=== PATIENT | male | born 1940 | race Caucasian/White ===

== ENCOUNTER → 2017-11-25 | Outpatient (CLI) | payer MEDICARE, OTHER ==
[~2017-11-25] MED LIST: CELE20TA PO; COUM2TAB PO; CYCL-36 PO; DICL-86 PO; LANO0.2510 PO; LEVA500T33 PO; LISI-590 PO; MOME17I; PERC7.5T13 PO; PRADAXA PO; ROPI1TAB72 PO; SIMV40TA PO; SPIRCAP INH; SYMB160A INH; TOPR50TA PO; ZYRT10TA12 PO
--- NOTE | 2017-11-29 13:59 | RSPPFT ---
DATE OF PROCEDURE: 11/25/17 COMMENTS: VOLUMES DYNAMIC: FVC and FEV1 moderately reduced. STATIC: TLC mildly reduced; FRC and RV normal. FLOWS: FEV1% moderately reduced; FEF 25-75 severely reduced. DIFFUSION: Moderately reduced. FLOW VOLUME LOOP: Pattern of variable intrathoracic airways obstruction. IMPRESSION: Moderately severe obstructive ventilator defect with reduction in diffusion consistent with emphysema. There is a mild restrictive defect as well with no hyperinflation. Airways resistance is increased but there is no significant improvement post-bronchodilator.
== END ==
LOC: HRSP 11:04
PROVIDERS: ATTEND Internal Medicine
DX: J44.9 Chronic obstructive pulmonary disease, unspecified (principal)
CPT/HCPCS: 94060; 94618; 94726; 94729; 95012

== ENCOUNTER 2017-12-07 14:26 | Observation (INO) | payer MEDICARE, OTHER ==
[2017-12-07 15:00] VITALS: BP 192/100; PULSE 125; RESP 28; TEMP 99.2; O2SAT 95
--- NOTE | 2017-12-07 15:32 | RADRPT ---
EXAM DATE/TIME: 12/07/2017 15:17 [place] COMPARISON: No previous studies available for comparison. INDICATIONS : Short of breath, chest pains. MEDICAL HISTORY : None. SURGICAL HISTORY : None. ENCOUNTER: Initial ACUITY: 1 day PAIN SCORE: 3/10 LOCATION: Bilateral chest FINDINGS: PA and lateral views of the chest demonstrate the lungs to be symmetrically aerated without evidence of mass, infiltrate or effusion. Mild elevation right hemidiaphragm. The heart is mildly enlarged.. Osseous structures are intact. CONCLUSION: 1. No acute pulmonary infiltrates. 2. Mild compensated cardiomegaly. Efra Angel MD on December 07, 2017 at 15:29 Board Certified Radiologist. This report was verified electronically.
[2017-12-07 16:31] LABS: AUTOMATED NEUTROPHIL # 9.4 TH/MM3 (1.8-7.7); BASOPHIL % 0.2 % (0.0-2.0); HEMATOCRIT 39.5 % (39.0-51.0); HEMOGLOBIN 13.9 GM/DL (13.0-17.0); LYMPH % 6.3 % (9.0-44.0); LYMPHOCYTE # 0.7 TH/MM3 (1.0-4.8); MEAN CELL VOLUME 91.6 FL (80.0-100.0); MEAN CORPUSCULAR HEMOGLOBIN 32.1 PG (27.0-34.0); MEAN CORPUSCULAR HGB CONC 35.1 % (32.0-36.0); MEAN PLATELET VOLUME 8.3 FL (7.0-11.0); MONOCYTE # 0.8 TH/MM3 (0-0.9); NEUT % 86.5 % (16.0-70.0); PLATELET COUNT 348 TH/MM3 (150-450); RED BLOOD COUNT 4.32 MIL/MM3 (4.50-5.90); RED CELL DISTRIBUTION WIDTH 15.1 % (11.6-17.2); WHITE BLOOD COUNT 10.8 TH/MM3 (4.0-11.0)
[2017-12-07 16:33] LABS: BILIRUBIN, URINE NEG (NEG); BLOOD, URINE TRACE (NEG); GLUCOSE,URINE NEG (NEG); KETONE, URINE NEG (NEG); NITRITE,URINE NEG (NEG); SQUAMOUS EPITHELIAL CELL URINE 1 /hpf (0-5); URINE COLOR YELLOW (YELLW/STRAW); URINE LEUKOCYTE ESTERASE NEG (NEG)
[2017-12-07 16:40] LABS: INTERNATIONAL NORMALIZED RATIO 1.1 RATIO; PROTHROMBIN TIME - PATIENT 11.2 SEC (9.8-11.6)
[2017-12-07 16:50] LABS: ALBUMIN 3.9 GM/DL (3.4-5.0); AST (GOT) 32 U/L (15-37); BICARBONATE 24.9 MEQ/L (21.0-32.0); BLOOD UREA NITROGEN 22 MG/DL (7-18); CALCIUM 9.6 MG/DL (8.5-10.1); CHLORIDE 107 MEQ/L (98-107); CREATININE 1.02 MG/DL (0.60-1.30); GLOMERULAR FILTRATION RATE 71 ML/MIN (>89); GLUCOSE,RANDOM 111 MG/DL (74-106); SODIUM (NA) 141 MEQ/L (136-145)
[2017-12-07 16:55] LABS: ALKALINE PHOSPHATASE 56 U/L (45-117); ALT (GPT) 48 U/L (12-78); TOTAL BILIRUBIN ADULT 0.7 MG/DL (0.2-1.0); TOTAL PROTEIN 7.9 GM/DL (6.4-8.2); TROPONIN I LESS THAN 0.02 NG/ML (0.02-0.05)
--- NOTE | 2017-12-07 17:11 | PD ---
HPI Chief Complaint: Respiratory Symptoms Time Seen by Provider: 17:00 Travel History International Travel<30 days: No Contact w/Intl Traveler<30days: No Traveled to known affect area: No History of Present Illness HPI 77-year-old male with PMH of anxiety, A. fib, hypertension, hyperlipidemia, COPD , on Xarelto presents to the ED for evaluation of approximate 14 hour history of shortness of breath, central chest tightness. The patient states that the symptoms awoke him from sleep last night. He states that he took a albuterol nebulizer with only minimal improvement of his symptoms. Patient states that he 's had a cough for many weeks. He saw his primary care and took a course of Levaquin with no improvement of his symptoms. He states that he underwent PFTs and had a CT on an outpatient basis as well. He states that after last night episode he started on Levaquin and 40 mg of prednisone again with no improvement of symptoms. He is followed by Dr. Stanley, pulmonology. PFSH Past Medical History Hx Anticoagulant Therapy: Yes (XARELTO) Arthritis: Yes Blood Disorders: No Anxiety: Yes Heart Rhythm Problems: Yes (ATRIAL FIB) Cancer: No Cardiovascular Problems: Yes (AFIB) High Cholesterol: Yes Congestive Heart Failure: No COPD: Yes Diabetes: No Endocrine: No Glaucoma: No Genitourinary: No Hepatitis: No Hiatal Hernia: No Hypertension: Yes Immune Disorder: No Musculoskeletal: Yes Neurologic: No Psychiatric: Yes (CLAUSTRAPHOBIA) Reproductive: No Respiratory: Yes (COPD) Sleep Apnea: Yes (NO C PAP) Thyroid Disease: No Past Surgical History Abdominal Surgery: No Body Medical Devices: LUMBAR HARDWARE Cardiac Surgery: No Ear Surgery: No (TONSILECTOMY) Endocrine Surgery: No Eye Surgery: No Genitourinary Surgery: No Gynecologic Surgery: No Joint Replacement: Yes (RIGHT KNEE TOTAL) Oral Surgery: Yes Pacemaker: No Thoracic Surgery: No Social History Alcohol Use: No Tobacco Use: No Substance Use: No Allergies-Medications (Allergen,Severity, Reaction): Coded Allergies: No Known Allergies (Verified , 07/29/11) Reported Meds & Prescriptions Reported Meds & Active Scripts Active Reported Spiriva Handihaler (Tiotropium Inh) 18 Mcg Cap 18 Mcg INH DAILY 1 capsule = 18 mcg Brovana Neb (Arformoterol Neb) 15 Mcg/2 Ml Vial 1 Nebule NEB BID Maintenance treatment of bronchoconstriction in COPD. Metronidazole Topical 1 % Gel 1 Applic TOPICAL DAILY Hydrocodone-Acetaminophen 5-325 mg Tab 1 Tab PO Q6H PRN Ipratropium Nasal 0.06% [place] 1 [place] EACH NARE TID Ventolin Hfa 18 GM Inh (Albuterol Sulfate) 90 Mcg/Act Aer 1 Puff INH Q4H PRN ZyrTEC Itchy Eye Opth Drops (Ketotifen Opth Drops) 0.025% Drops 1 Drop EACH EYE BID PRN Nasacort Allergy 24Hr Nasal [place] (Triamcinolone Acetonide Nasal [place]) 55 Mcg Spr 55 Mcg EACH NARE DAILY Xarelto (Rivaroxaban) 20 Mg Tab 20 Mg PO DAILY Bystolic (Nebivolol) 2.5 Mg Tab 2.5 Mg PO DAILY Diclofenac Sodium DR (Diclofenac Sodium) 75 Mg Tabdr 75 Mg PO BID Ropinirole 1 Mg Tab 1 Mg HS Crestor (Rosuvastatin Calcium) 10 Mg Tab 10 Mg PO DAILY Lisinopril 5 Mg Tab 5 Mg PO DAILY Citalopram (Citalopram Hydrobromide) 10 Mg Tab 10 Mg PO DAILY Digoxin 0.25 Mg Tab 0.25 Mg PO DAILY Review of Systems Except as stated in HPI: all other systems reviewed are Neg Physical Exam Narrative GENERAL: Well-nourished, well-developed obese white male with some extra work of breathing. On 2 L nasal cannula. SKIN: Focused skin assessment warm/dry. HEAD: Normocephalic. EYES: No scleral icterus. No injection or drainage. NECK: Supple, trachea midline. No JVD or lymphadenopathy. CARDIOVASCULAR: Irregularly irregular rate and rhythm without murmurs, gallops, or rubs. RESPIRATORY: Breath sounds wheezing and tight bilaterally. No accessory muscle use. GASTROINTESTINAL: Abdomen soft, non-tender, nondistended. MUSCULOSKELETAL: No cyanosis, or edema. BACK: Nontender without obvious deformity. No CVA tenderness. Data Data Last Documented VS Vital Signs Date Time Temp Pulse Resp B/P (MAP) Pulse Ox O2 Delivery O2 Flow Rate FiO2 12/07/17 19:23 112 20 176/84 (114) 95 Nasal Cannula 2.00 12/07/17 15:00 99.2 Orders Orders Complete Blood Count With Diff (12/07/17 15:03) Comprehensive Metabolic Panel (12/07/17 15:03) B-Type Natriuretic Peptide (12/07/17 15:03) Act Partial Throm Time (Ptt) (12/07/17 15:03) Prothrombin Time / Inr (Pt) (12/07/17 15:03) Ckmb (Isoenzyme) Profile (12/07/17 15:03) Troponin I (12/07/17 15:03) Urinalysis - C+S If Indicated (12/07/17 15:03) Influenzae A/B Antigen (12/07/17 15:03) Electrocardiogram (12/07/17 15:03) Chest, Pa & Lat (12/07/17 15:03) CKMB (12/07/17 15:50) CKMB% (12/07/17 15:50) Methylprednisolone So Succ Inj (Solumedr (12/07/17 17:15) Albuterol-Ipratropium Neb (Duoneb Neb) (12/07/17 17:15) Diltiazem Inj (Cardizem Inj) (12/07/17 17:30) Consult Pulmonology (12/07/17 ) Admit Order (Ed Use Only) (12/07/17 19:23) Labs Laboratory Tests Test 12/07/17 15:50 12/07/17 16:00 White Blood Count 10.8 TH/MM3 Red Blood Count 4.32 MIL/MM3 Hemoglobin 13.9 GM/DL Hematocrit 39.5 % Mean Corpuscular Volume 91.6 FL Mean Corpuscular Hemoglobin 32.1 PG Mean Corpuscular Hemoglobin Concent 35.1 % Red Cell Distribution Width 15.1 % Platelet Count 348 TH/MM3 Mean Platelet Volume 8.3 FL Neutrophils (%) (Auto) 86.5 % Lymphocytes (%) (Auto) 6.3 % Monocytes (%) (Auto) 7.0 % Eosinophils (%) (Auto) 0.0 % Basophils (%) (Auto) 0.2 % Neutrophils # (Auto) 9.4 TH/MM3 Lymphocytes # (Auto) 0.7 TH/MM3 Monocytes # (Auto) 0.8 TH/MM3 Eosinophils # (Auto) 0.0 TH/MM3 Basophils # (Auto) 0.0 TH/MM3 CBC Comment DIFF FINAL Differential Comment Prothrombin Time 11.2 SEC Prothromb Time International Ratio 1.1 RATIO Activated Partial Thromboplast Time 25.2 SEC Blood Urea Nitrogen 22 MG/DL Creatinine 1.02 MG/DL Random Glucose 111 MG/DL Total Protein 7.9 GM/DL Albumin 3.9 GM/DL Calcium Level 9.6 MG/DL Alkaline Phosphatase 56 U/L Aspartate Amino Transf (AST/SGOT) 32 U/L Alanine Aminotransferase (ALT/SGPT) 48 U/L Total Bilirubin 0.7 MG/DL Sodium Level 141 MEQ/L Potassium Level 4.1 MEQ/L Chloride Level 107 MEQ/L Carbon Dioxide Level 24.9 MEQ/L Anion Gap 9 MEQ/L Estimat Glomerular Filtration Rate 71 ML/MIN Total Creatine Kinase 360 U/L Creatine Kinase MB 13.0 NG/ML Creatine Kinase MB % 3.6 % Troponin I LESS THAN 0.02 NG/ML B-Type Natriuretic Peptide 45 PG/ML Urine Color YELLOW Urine Turbidity CLEAR Urine pH 5.0 Urine Specific [place] 1.016 Urine Protein NEG mg/dL Urine Glucose (UA) NEG mg/dL Urine Ketones NEG mg/dL Urine Occult Blood TRACE Urine Nitrite NEG Urine Bilirubin NEG Urine Urobilinogen LESS THAN 2.0 MG/DL Urine Leukocyte Esterase NEG Urine RBC 1 /hpf Urine WBC LESS THAN 1 /hpf Urine Squamous Epithelial Cells 1 /hpf Microscopic Urinalysis Comment CULT NOT INDICATED MDM Medical Decision Making Medical Screen Exam Complete: Yes Emergency Medical Condition: Yes Differential Diagnosis COPD exacerbation versus PNA versus bronchitis versus other Narrative Course 77-year-old male with PMH of anxiety, A. fib, hypertension, hyperlipidemia, COPD , on Xarelto presents to the ED for evaluation of approximate 14 hour history of shortness of breath, central chest tightness. The patient states that the symptoms awoke him from sleep last night. He states that he took an albuterol nebulizer with only minimal improvement of his symptoms. Patient states that he 's had a cough for many weeks, took a course of Levaquin with no improvement of his symptoms. He states that he underwent PFTs and had a CT on an outpatient basis. He states that after last night episode he started taking Levaquin and 40 mg of prednisone again with no improvement of symptoms. He is followed by Dr. Stanley, pulmonology. Temp 99.2. Pulse 125, respiratory rate 28, pulse ox 95 %, BP 192/100 on presentation. On exam this is a an obese white male with some difficulties of breathing. He is on 2 L by nasal cannula. Heart rate is irregularly irregularly. Breath sounds are are tight and wheezy bilaterally. IV was established. Patient was administered 10 mg diltiazem, 60 mg IV Solu- Medrol and 2 nebs 3. EKG rate 117, A. fib with RVR. Normal axis. No acute ST changes. Reviewed by Dr. Elam. CXR: No acute pulmonary infiltrates per radiology read. Cardiac enzymes: Negative 1. BNP 45. UA: No culture indicated. 12/07/17 15:50 Total Protein 7.9, Albumin 3.9, Calcium Level 9.6, Alkaline Phosphatase 56, Aspartate Amino Transf (AST/SGOT) 32, Alanine Aminotransferase (ALT/SGPT) 48, Total Bilirubin 0.7 On recheck heart rate 112, BP 176/84. Discussed the results of the workup with the patient. I recommend that he stay for observation. He is agreeable to this plan. Patient complaining of musculoskeletal neck pain. He administered 600 mg ibuprofen and 10 mg of Flexeril by mouth. Pulmonary consult was placed with Dr. Stanley. I spoke with Dr. Bradshaw who agrees to accept the patient to the medicine service. Please see medicine and pulmonology notes for disposition. Юлия Joseph Dec 07, 2017 17:11
[2017-12-07] MEDS ORDERED: methylPREDNISolone SOD SUCC 125 MG/2 ML VIAL IV PUSH ONE (17:15)
[2017-12-07] MEDS ORDERED: DILTIAZEM HCL 25 MG/5 ML VIAL IV ONE (17:30)
[2017-12-07 17:43] VITALS: BP 192/86; PULSE 113; RESP 20; O2SAT 96
[2017-12-07 17:46] VITALS: PULSE 95; RESP 18
[2017-12-07] MEDS: RESP: ALBUTEROL 2.5 MG/IPRATROPIUM 0.5 MG NEB (SCH) INH ×2 (18:00→18:01)
[2017-12-07] MEDS ORDERED: KETO0.02 EACH EYE (18:04)
[2017-12-07] MEDS ORDERED: LISI-519 PO (18:04)
[2017-12-07] MEDS ORDERED: BYST2.5T2 PO (18:04)
[2017-12-07] MEDS ORDERED: CITA10TA4 PO (18:04)
[2017-12-07] MEDS ORDERED: XARE20TA PO (18:04)
[2017-12-07] MEDS ORDERED: IPRA0.06 EACH NARE (18:04)
[2017-12-07] MEDS ORDERED: BROV15NE NEB (18:04)
[2017-12-07] MEDS ORDERED: SPIRCAP INH (18:04)
[2017-12-07] MEDS ORDERED: ROPI1TAB (18:04)
[2017-12-07] MEDS ORDERED: HYDR-3516 PO (18:04)
[2017-12-07] MEDS ORDERED: VENTAER INH (18:04)
[2017-12-07] MEDS ORDERED: TRIA1SPR5 EACH NARE (18:04)
[2017-12-07] MEDS ORDERED: METR28.4 TOPICAL (18:04)
[2017-12-07] MEDS ORDERED: DIGO0.25 PO (18:04)
[2017-12-07] MEDS ORDERED: DICL75TA PO (18:04)
[2017-12-07] MEDS ORDERED: ROSU10 PO (18:04)
[2017-12-07 19:23] VITALS: BP 176/84; PULSE 112; RESP 20; O2SAT 95
[2017-12-07] MEDS ORDERED: IBUPROFEN 600 MG TAB PO ONE (20:15)
[2017-12-07] MEDS ORDERED: CYCLOBENZAPRINE HCL 10 MG TAB PO ONE (20:15)
[2017-12-07] MEDS ORDERED: PROCHLORPERAZINE 25 MG SUPP RECTAL PRN (20:30)
[2017-12-07] MEDS ORDERED: RESP: ALBUTEROL 2.5 MG/IPRATROPIUM 0.5 MG NEB (PRN) NEB (20:30)
[2017-12-07] MEDS ORDERED: SODIUM CHLORIDE 0.9% FLUSH 10 ML FLUSH IV FLUSH PRN (20:30)
[2017-12-07] MEDS ORDERED: ACETAMINOPHEN 325 MG TAB PO PRN (20:30)
[2017-12-07 20:50] VITALS: BP 135/87; PULSE 128; RESP 16; TEMP 98; O2SAT 96
--- NOTE | 2017-12-07 21:52 | HHI.HP ---
[facility] Unknown Admission Diagnosis COPD exacerbation Diagnoses: Travel History International Travel<30 Days: No Contact w/Intl Traveler <30 Da: No Traveled to Known Affected Are: No History of Present Illness 77-year-old male with a past medical history significant for COPD, atrial fibrillation anticoagulated on Xarelto, hypertension and hyperlipidemia presents to the emergency department for evaluation of shortness of breath. The patient reports that since Frieda has had a constant bronchial infection. He has completed 2 courses of oral steroids and antibiotics. He reports that on Wednesday he had a fever of 101.8 and a cough that was productive of yellow sputum. On Wednesday he started Levaquin and oral prednisone. He reports an increase in his shortness of breath despite starting these medications. He is not on home oxygen. He denies any chest pain. He denies nausea/vomiting/diarrhea. No lateralizing signs/symptoms. Review of Systems Except as stated in HPI: all other systems reviewed are Neg Past Family Social History Past Medical History COPD Atrial fibrillation anticoagulated on Xarelto Hypertension Hyperlipidemia Past Surgical History Bilateral knee replacement Lumbar fusion Reported Medications Reported Meds & Active Scripts Active Reported Spiriva Handihaler (Tiotropium Inh) 18 Mcg Cap 18 Mcg INH DAILY 1 capsule = 18 mcg Brovana Neb (Arformoterol Neb) 15 Mcg/2 Ml Vial 1 Nebule NEB BID Maintenance treatment of bronchoconstriction in COPD. Metronidazole Topical 1 % Gel 1 Applic TOPICAL DAILY Hydrocodone-Acetaminophen 5-325 mg Tab 1 Tab PO Q6H PRN Ipratropium Nasal 0.06% [place] 1 [place] EACH NARE TID Ventolin Hfa 18 GM Inh (Albuterol Sulfate) 90 Mcg/Act Aer 1 Puff INH Q4H PRN ZyrTEC Itchy Eye Opth Drops (Ketotifen Opth Drops) 0.025% Drops 1 Drop EACH EYE BID PRN Nasacort Allergy 24Hr Nasal [place] (Triamcinolone Acetonide Nasal [place]) 55 Mcg Spr 55 Mcg EACH NARE DAILY Xarelto (Rivaroxaban) 20 Mg Tab 20 Mg PO DAILY Bystolic (Nebivolol) 2.5 Mg Tab 2.5 Mg PO DAILY Diclofenac Sodium DR (Diclofenac Sodium) 75 Mg Tabdr 75 Mg PO BID Ropinirole 1 Mg Tab 1 Mg HS Crestor (Rosuvastatin Calcium) 10 Mg Tab 10 Mg PO DAILY Lisinopril 5 Mg Tab 5 Mg PO DAILY Citalopram (Citalopram Hydrobromide) 10 Mg Tab 10 Mg PO DAILY Digoxin 0.25 Mg Tab 0.25 Mg PO DAILY Allergies: Coded Allergies: No Known Allergies (Verified , 07/29/11) Family History Father with CAD Social History Quit smoking in 2009. Denies alcohol or illicit drugs. Physical Exam Vital Signs Vital Signs Date Time Temp Pulse Resp B/P (MAP) Pulse Ox O2 Delivery O2 Flow Rate FiO2 12/07/17 20:51 12/07/17 20:50 98.0 128 16 135/87 (103) 96 12/07/17 19:23 112 20 176/84 (114) 95 Nasal Cannula 2.00 12/07/17 17:46 95 18 12/07/17 17:43 113 20 96 2.00 12/07/17 17:43 113 20 192/86 (121) 96 Nasal Cannula 2.00 12/07/17 15:00 99.2 125 28 192/100 (130) 95 Physical Exam GENERAL: male sitting up in bed SKIN: No rashes, ecchymoses or lesions. Cool and dry. HEAD: Atraumatic. Normocephalic. No temporal or scalp tenderness. EYES: Pupils equal round and reactive. Extraocular motions intact. No scleral icterus. No injection or drainage. ENT: Nose without bleeding, purulent drainage or septal hematoma. Throat without erythema, tonsillar hypertrophy or exudate. Uvula midline. Airway patent. NECK: Trachea midline. No JVD or lymphadenopathy. Supple, nontender, no meningeal signs. CARDIOVASCULAR: Regular rate and rhythm without murmurs, gallops, or rubs. RESPIRATORY: Breath sounds equal bilaterally. No wheezes or rales. Positive rhonchi. GASTROINTESTINAL: Abdomen soft, non-tender, nondistended. No hepato-splenomegaly , or palpable masses. No guarding. MUSCULOSKELETAL: Extremities without clubbing, cyanosis, or edema. No joint tenderness, effusion, or edema noted. No calf tenderness. NEUROLOGICAL: Awake and alert. Cranial nerves II through XII intact. Motor and sensory grossly within normal limits. Normal speech. Laboratory Laboratory Tests Test 12/07/17 15:50 12/07/17 16:00 White Blood Count 10.8 Red Blood Count 4.32 Hemoglobin 13.9 Hematocrit 39.5 Mean Corpuscular Volume 91.6 Mean Corpuscular Hemoglobin 32.1 Mean Corpuscular Hemoglobin Concent 35.1 Red Cell Distribution Width 15.1 Platelet Count 348 Mean Platelet Volume 8.3 Neutrophils (%) (Auto) 86.5 Lymphocytes (%) (Auto) 6.3 Monocytes (%) (Auto) 7.0 Eosinophils (%) (Auto) 0.0 Basophils (%) (Auto) 0.2 Neutrophils # (Auto) 9.4 Lymphocytes # (Auto) 0.7 Monocytes # (Auto) 0.8 Eosinophils # (Auto) 0.0 Basophils # (Auto) 0.0 CBC Comment DIFF FINAL Differential Comment Prothrombin Time 11.2 Prothromb Time International Ratio 1.1 Activated Partial Thromboplast Time 25.2 Blood Urea Nitrogen 22 Creatinine 1.02 Random Glucose 111 Total Protein 7.9 Albumin 3.9 Calcium Level 9.6 Alkaline Phosphatase 56 Aspartate Amino Transf (AST/SGOT) 32 Alanine Aminotransferase (ALT/SGPT) 48 Total Bilirubin 0.7 Sodium Level 141 Potassium Level 4.1 Chloride Level 107 Carbon Dioxide Level 24.9 Anion Gap 9 Estimat Glomerular Filtration Rate 71 Total Creatine Kinase 360 Creatine Kinase MB 13.0 Creatine Kinase MB % 3.6 Troponin I LESS THAN 0.02 B-Type Natriuretic Peptide 45 Urine Color YELLOW Urine Turbidity CLEAR Urine pH 5.0 Urine Specific [place] 1.016 Urine Protein NEG Urine Glucose (UA) NEG Urine Ketones NEG Urine Occult Blood TRACE Urine Nitrite NEG Urine Bilirubin NEG Urine Urobilinogen LESS THAN 2.0 Urine Leukocyte Esterase NEG Urine RBC 1 Urine WBC LESS THAN 1 Urine Squamous Epithelial Cells 1 Microscopic Urinalysis Comment CULT NOT INDICATED Date/Time Source Procedure Growth Status 12/07/17 15:50 Nasal Washing Influenza Types A,B Antigen (MOLLY) - Final NEGATIVE FOR FLU A AND B ANTIGEN.... Complete Result Diagram: 12/07/17 1550 12/07/17 1550 Caprini VTE Risk Assessment Caprini VTE Risk Assessment: Mod/High Risk (score >= 2) Caprini Risk Assessment Model Point Value = 1 Point Value = 2 Point Value = 3 Point Value = 5 Age 41-60 Minor surgery BMI > 25 kg/m2 Swollen legs Varicose veins or History of unexplained or recurrent spontaneous Oral contraceptives or hormone replacement Sepsis (< 1 month) Serious lung disease, including pneumonia (< 1 month) Abnormal pulmonary function Acute myocardial infarction Congestive heart failure (< 1 month) History of inflammatory bowel disease Medical patient at bed rest Age 61-74 Arthroscopic surgery Major open surgery (> 45 min) Laparoscopic surgery (> 45 min) Malignancy Confined to bed (> 72 hours) Immobilizing plaster cast Central venous access Age >= 75 History of VTE Family history of VTE Factor V Leiden Prothrombin [id number] Lupus anticoagulant Anticardiolipin antibodies Elevated serum homocysteine Heparin-induced thrombocytopenia Other congenital or acquired thrombophilia Stroke (< 1 month) Elective arthroplasty Hip, pelvis, or leg fracture Acute spinal cord injury (< 1 month) Prophylaxis Regimen Total Risk Factor Score Risk Level Prophylaxis Regimen 0-1 Low Early ambulation 2 Moderate Order ONE of the following: *Sequential Compression Device (SCD) *Heparin 5000 units SQ BID 3-4 Higher Order ONE of the following medications: *Heparin 5000 units SQ TID *Enoxaparin/Lovenox 40 mg SQ daily (WT < 150 kg, CrCl > 30 mL/min) *Enoxaparin/Lovenox 30 mg SQ daily (WT < 150 kg, CrCl > 10-29 mL/min) *Enoxaparin/Lovenox 30 mg SQ BID (WT < 150 kg, CrCl > 30 mL/min) AND/OR *Sequential Compression Device (SCD) 5 or more Highest Order ONE of the following medications: *Heparin 5000 units SQ TID (Preferred with Epidurals) *Enoxaparin/Lovenox 40 mg SQ daily (WT < 150 kg, CrCl > 30 mL/min) *Enoxaparin/Lovenox 30 mg SQ daily (WT < 150 kg, CrCl > 10-29 mL/min) *Enoxaparin/Lovenox 30 mg SQ BID (WT < 150 kg, CrCl > 30 mL/min) AND *Sequential Compression Device (SCD) Assessment and Plan Assessment and Plan Assessment/plan: 1. 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 Atrial fibrillation Continue home medications Continue anticoagulation with Xarelto 3. Hypertension/hyperlipidemia Continue home medications FEN Heart healthy diet Electrolytes: monitor and replete prn Ara White MD Dec 07, 2017 21:51
[2017-12-07] MEDS: RESP: ALBUTEROL 2.5 MG/IPRATROPIUM 0.5 MG NEB (SCH) NEB (22:14)
[2017-12-07 22:19] VITALS: O2SAT 99
[2017-12-07] MEDS: SODIUM CHLORIDE 0.9% FLUSH 10 ML FLUSH IV FLUSH SCH (22:22)
[2017-12-07] MEDS: methylPREDNISolone SOD SUCC 125 MG/2 ML VIAL IV PUSH SCH (22:23)
[2017-12-07] MEDS: LEVOFLOXACIN 750 MG PREMIX INJ 150 ML IV SCH (22:29)
[2017-12-08] VITALS (11 sets, daily range): BP systolic 118–159; BP diastolic 58–85; PULSE 96–126; RESP 14–22; TEMP 97.7–98.6; O2SAT 95–98
[2017-12-08] MEDS: RESP: ALBUTEROL 2.5 MG/IPRATROPIUM 0.5 MG NEB (SCH) NEB ×2 (03:57→09:26)
[2017-12-08] MEDS: methylPREDNISolone SOD SUCC 125 MG/2 ML VIAL IV PUSH SCH ×4 (04:12→22:55)
[2017-12-08] MEDS: ACETAMINOPHEN/HYDROcodone 325 MG/5 MG TAB PO PRN ×2 (04:24→22:56)
[2017-12-08 05:26] LABS: AUTOMATED NEUTROPHIL # 9.3 TH/MM3 (1.8-7.7); BASOPHIL % 0.1 % (0.0-2.0); HEMATOCRIT 38.8 % (39.0-51.0); HEMOGLOBIN 13.5 GM/DL (13.0-17.0); LYMPH % 6.9 % (9.0-44.0); LYMPHOCYTE # 0.7 TH/MM3 (1.0-4.8); MEAN CELL VOLUME 91.3 FL (80.0-100.0); MEAN CORPUSCULAR HEMOGLOBIN 31.7 PG (27.0-34.0); MEAN CORPUSCULAR HGB CONC 34.7 % (32.0-36.0); MEAN PLATELET VOLUME 8.2 FL (7.0-11.0); MONO % 2.8 % (0.0-8.0); MONOCYTE # 0.3 TH/MM3 (0-0.9); NEUT % 90.2 % (16.0-70.0); PLATELET COUNT 339 TH/MM3 (150-450); RED BLOOD COUNT 4.25 MIL/MM3 (4.50-5.90); WHITE BLOOD COUNT 10.4 TH/MM3 (4.0-11.0)
[2017-12-08 05:53] LABS: BICARBONATE 26.1 MEQ/L (21.0-32.0); CREATININE 0.91 MG/DL (0.60-1.30)
[2017-12-08] MEDS ORDERED: TIOTROPIUM BROMIDE 18 MCG INH INH SCH (09:00)
[2017-12-08] MEDS ORDERED: NEBIVOLOL 2.5 MG TAB PO SCH (09:00)
[2017-12-08] MEDS: ATORVASTATIN 20 MG TAB PO SCH (09:13)
[2017-12-08] MEDS: CITALOPRAM HYDROBROMIDE 20 MG TAB PO SCH (09:13)
[2017-12-08] MEDS: RIVAROXABAN 20 MG TAB PO SCH (09:13)
[2017-12-08] MEDS: DIGOXIN 0.25 MG TAB PO SCH (09:13)
[2017-12-08] MEDS: LISINOPRIL 5 MG TAB PO SCH (09:13)
[2017-12-08] MEDS: SODIUM CHLORIDE 0.9% FLUSH 10 ML FLUSH IV FLUSH SCH ×2 (09:14→20:27)
--- NOTE | 2017-12-08 11:45 | HHI.PR ---
Subjective Remarks Follow-up COPD exacerbation. He is feeling better and wants to go home. Telemetry shows RVR denies chest pain and palpitations. Discussed with nursing and pulmonary Objective Vitals Vital Signs Date Time Temp Pulse Resp B/P (MAP) Pulse Ox O2 Delivery O2 Flow Rate FiO2 12/08/17 11:10 97.7 126 22 140/78 (98) 95 12/08/17 07:18 97.7 105 20 136/85 (102) 97 12/08/17 04:30 98.6 106 16 159/77 (104) 96 12/08/17 01:20 98.0 101 14 118/58 (78) 97 12/08/17 00:07 96 12/07/17 22:19 99 Nasal Cannula 2.00 12/07/17 20:51 12/07/17 20:50 98.0 128 16 135/87 (103) 96 12/07/17 19:23 112 20 176/84 (114) 95 Nasal Cannula 2.00 12/07/17 17:46 95 18 12/07/17 17:43 113 20 96 2.00 12/07/17 17:43 113 20 192/86 (121) 96 Nasal Cannula 2.00 12/07/17 15:00 99.2 125 28 192/100 (130) 95 Result Diagram: 12/08/17 0451 12/08/17 0451 Imaging Last Impressions Chest X-Ray 12/07/17 1503 Signed Impressions: Service Date/Time: Thursday, December 07, 2017 15:17 - CONCLUSION: 1. No acute pulmonary infiltrates. 2. Mild compensated cardiomegaly. Efra Angel MD Objective Remarks GENERAL: Well-developed and well-nourished SKIN: No rashes, ecchymoses or lesions. Cool and dry. CARDIOVASCULAR: Irregularly irregular tachy RESPIRATORY: Breath sounds equal bilaterally. No wheezes or rales. GASTROINTESTINAL: Abdomen soft, non-tender, nondistended. No hepato-splenomegaly , or palpable masses. No guarding. MUSCULOSKELETAL: Extremities without clubbing, cyanosis, or edema. No joint tenderness, effusion, or edema noted. No calf tenderness. Procedures none A/P Problem List: (1) COPD (chronic obstructive pulmonary disease) ICD Code: J44.9 - Chronic obstructive pulmonary disease, unspecified Assessment and Plan 1. COPD exacerbation. Continue nebulization, steroids, Levaquin and wean oxygen to keep saturations at least 92% 2. Atrial fibrillation with RVR. Restart digoxin beta-hank and Xarelto. May need Cardizem drip. Check TSH and monitor on telemetry 3. Hypertension/hyperlipidemia. Stable continue home medications FEN Heart healthy diet Electrolytes: monitor and replete prn Xarelto Discharge Planning Not ready for discharge patient with RVR Sammy Izaguirre MD Dec 08, 2017 11:45
[2017-12-08] MEDS ORDERED: ALBUTEROL SULFATE 90 MCG/ACT HFA 8 GM INHALER INH PRN (12:00)
[2017-12-08] MEDS ORDERED: RESP: ALBUTEROL 2.5 MG/IPRATROPIUM 0.5 MG NEB (PRN) NEB (13:15)
--- NOTE | 2017-12-08 14:20 | EKG ---
Date Performed: 12/07/2017 Time Performed: 15:41:55 PTAGE: 77 years EKG: ATRIAL FIBRILLATION WITH RAPID VENTRICULAR RESPONSE LOW QRS VOLTAGE IN EXTREMITY LEADS NONS PECIFIC ST & T-WAVE ABNORMALITY NO PREVIOUS TRACING DOCTOR: Farrukh Monge Interpretating Date/Time 12/08/2017 14:18:33
[2017-12-08] MEDS: RESP: ALBUTEROL 1.25 MG/3 ML NEB (SCH) NEB ×2 (16:42→19:14)
[2017-12-08] MEDS: RESP: IPRATROPIUM 0.5 MG/2.5 ML NEB NEB SCH ×2 (16:42→19:14)
--- NOTE | 2017-12-08 16:57 | MB ---
cc: Alton Stanley MD DATE OF CONSULT: Mr. Kaufman is a 77-year-old white male who I first saw in mid November for recurrent bronchitis and some abnormal nodules on his CT scan done by his primary physician. He had a prior history of COPD, had been on a nebulizer and Spiriva recently, but he was not using it consistently because he felt well. He has a greater than 64-[id number]-guxb smoking history. He quit in 2009. The CT scan comparison was from 2012. The new scan revealed some [id number] nodularity at the bases of the lung. Emphysema was also noted. Patient called yesterday with increased wheezing, congestion, shortness of breath, was having difficulty catching his breath, and had been on Levaquin and prednisone as an outpatient without a good response. He seemed to be getting worse. For that reason, he was sent to the emergency room where he was noted to be in significant distress with hypertension, diffuse wheezing and hypoxemia. He was admitted. His chest x-ray revealed nothing acute. He is on chronic anticoagulation for atrial fibrillation. No other scanning was done. Overnight, he received nebulized aerosol treatments, antibiotics, corticosteroids, and he is feeling better, but with any exertion, he is getting short of breath at this point and his heart rate shoots up into the 130s. He does have atrial fibrillation, followed by Dr. Goddard. He has had no chest pain or hemoptysis, no increased edema. PAST MEDICAL HISTORY: Hypertension, chronic atrial fibrillation, obesity with a BMI of 31, spinal stenosis. He has had surgery. Colon palsy and bilateral knee replacements. No history of thromboembolic disease. He is on the anticoagulants for chronic atrial fibrillation. ALLERGIES TO MEDICATIONS: NONE. FAMILY HISTORY: Father had heart disease, in his 70s. Mother developed dementia in her mid-90s. Sister of pneumonia. Three children, 2 daughters and a son. The son has some sinus and allergies problems. SOCIAL HISTORY: , living with his . 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 Was a prior smoker, quit in 2009. Rare alcohol use. No other unusual exposures. No animal exposures. MEDICINES: Reviewed and recorded. REVIEW OF SYSTEMS: No chest pain or hemoptysis. No notable fever. Just shortness of breath, wheezing and congestion. Some palpitations but no anginal chest pain. No chronic edema. PHYSICAL EXAMINATION: Awake, alert, comfortable at rest. Afebrile. O2 sat on 2 L 95%. Blood pressure 128/ __ , pulse rate 120, irregular, and respirations are 18-22. Pharynx is clear. Neck veins are flat. Diffuse wheezing throughout both lungs. No congestion. Irregular rhythm, rapid. No harsh murmur. Abdomen is soft. No pitting edema or calf tenderness. No cyanosis. Mr. Kaufman presents with what appears to be an acute exacerbation of his chronic obstructive pulmonary disease. His atrial fibrillation is also rapid at this point, probably as a consequence of the pulmonary disease, along with the bronchodilators, but I have asked Dr. Goddard to see him if any further adjustments in his medications are necessary and also to evaluate an elevated CPK. Will continue this therapy using as little beta agonist as possible in light of the heart rate. Patient requested to go home. I told him he needed to stay in the hospital for a few days to settle this down and also spoke with Dr. Izaguirre, the admitting hospitalist. Further diagnostic and/or therapeutic intervention will depend on his response and ongoing clinical course. R. MD ANAMARIA Quiñones/ABILE , 04:36 PM , 04:55 PM
--- NOTE | 2017-12-08 18:23 | PD.CONS ---
HPI Service Cardiology Consult Requested By Dr. Stanley Reason for Consult AFib Primary Care Physician Unknown History of Present Illness Mr. Kaufman is a pleasant 77 year old well known to Dr. Goddard. He has a past medical history significant for chronic atrial fibrillation anticoagulated with xarelto, cardiomyopathy, hypertension, hyperlipidemia, COPD, and chronic back pain. He presented to the ED yesterday with complaints of increased shortness of breath. He reports upper respiratory/bronchitis issues ongoing since September. He has had several rounds of antibiotics and steroids. Wednesday, he developed a fever, productive cough of green sputum. He was evaluated at urgent care on Wednesday and was started on antibiotics and steroids. 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 He came to the ED for further evaluation and management. Work up in the ED with normal WBC, CXR - no acute pulmonary infiltrates, mild cardiomegaly. BNP 45, troponin <0.02. EKG with atrial fibrillation with rapid ventricular response. He has received IV antibiotics and steroids and is feeling much better. He is currently sitting up in the chair without distress. O2 2L nc. He complains of chronic back pain. He denies chest pain, palpitations or edema. Telemetry with atrial fibrillation, rate 98. is at the bedside. Review of Systems Consitutional: COMPLAINS OF: Fever, DENIES: Fatigue, Chills, Weight gain, Weight loss Eyes: DENIES: Amaurosis Fugax, Change in vision HEENT: DENIES: Lightheadedness, Change in hearing Respiratory: COMPLAINS OF: Cough, Shortness of breath, Sputum production, DENIES: See HPI, Snoring, Wheezing Cardiovascular: DENIES: See HPI, Chest pain, Palpitations, Syncope, Tachycardia Gastrointestinal: DENIES: Nausea, Vomiting, Change in bowel habits, Reflux, Bloody stools, Melena Genitourinary: DENIES: Urinary incontinence, Difficulty voiding Integumentary: DENIES: Rash Neurologic: DENIES: Tingling or numbness, Memory problems, Poor Balance, Stroke symptoms Musculoskeletal: DENIES: Joint pain, Muscle pain, Limited range of motion, Back pain Psychiatric: DENIES: Anxiety, Depression, Sleep disturbances Hematologic: DENIES: Bruising tendencies, Bleeding tendencies Endocrine: DENIES: Weight gain, Weight loss, Thyroid disease Past Family Social History Allergies: Coded Allergies: No Known Allergies (Verified , 07/29/11) Past Medical History chronic atrial fibrillation non-ischemic cardiomyopathy hypertension hyperlipidemia COPD chronic back pain Past Surgical History Back surgery bilateral knee replacements Reported Medications Reported Meds & Active Scripts Active Reported Spiriva Handihaler (Tiotropium Inh) 18 Mcg Cap 18 Mcg INH DAILY 1 capsule = 18 mcg Brovana Neb (Arformoterol Neb) 15 Mcg/2 Ml Vial 1 Nebule NEB BID Maintenance treatment of bronchoconstriction in COPD. Metronidazole Topical 1 % Gel 1 Applic TOPICAL DAILY Hydrocodone-Acetaminophen 5-325 mg Tab 1 Tab PO Q6H PRN Ipratropium Nasal 0.06% [place] 1 [place] EACH NARE TID Ventolin Hfa 18 GM Inh (Albuterol Sulfate) 90 Mcg/Act Aer 1 Puff INH Q4H PRN ZyrTEC Itchy Eye Opth Drops (Ketotifen Opth Drops) 0.025% Drops 1 Drop EACH EYE BID PRN Nasacort Allergy 24Hr Nasal [place] (Triamcinolone Acetonide Nasal [place]) 55 Mcg Spr 55 Mcg EACH NARE DAILY Xarelto (Rivaroxaban) 20 Mg Tab 20 Mg PO DAILY Bystolic (Nebivolol) 2.5 Mg Tab 2.5 Mg PO DAILY Diclofenac Sodium DR (Diclofenac Sodium) 75 Mg Tabdr 75 Mg PO BID Ropinirole 1 Mg Tab 1 Mg HS Crestor (Rosuvastatin Calcium) 10 Mg Tab 10 Mg PO DAILY Lisinopril 5 Mg Tab 5 Mg PO DAILY Citalopram (Citalopram Hydrobromide) 10 Mg Tab 10 Mg PO DAILY Digoxin 0.25 Mg Tab 0.25 Mg PO DAILY Active Ordered Medications Current Medications Medications (Trade) Dose Ordered Sig/Chema Route Start Time Stop Time Status Last Admin (NS Flush) 2 ml UNSCH PRN IV FLUSH 12/07/17 20:30 (NS Flush) 2 ml BID IV FLUSH 12/07/17 21:00 12/08/17 09:14 (Tylenol) 650 mg Q4H PRN PO 12/07/17 20:30 (Compazine Supp) 25 mg Q12H PRN RECTAL 12/07/17 20:30 (CeleXA) 10 mg DAILY PO 12/08/17 09:00 12/08/17 09:13 (Lanoxin) 0.25 mg DAILY PO 12/08/17 09:00 12/08/17 09:13 ([place] 5-325 Mg) 1 tab Q6H PRN PO 12/07/17 20:30 12/08/17 04:24 (Prinivil) 5 mg DAILY PO 12/08/17 09:00 12/08/17 09:13 (Bystolic) 2.5 mg DAILY PO 12/08/17 09:00 12/08/17 09:13 (Xarelto) 20 mg DAILY PO 12/08/17 09:00 12/08/17 09:13 (Requip) 1 mg HS PO 12/07/17 21:00 12/07/17 22:23 (Lipitor) 20 mg DAILY PO 12/08/17 09:00 12/08/17 09:13 (SoluMEDROL INJ) 60 mg Q6H IV PUSH 12/07/17 23:00 12/08/17 17:23 Levofloxacin/ Dextrose 150 ml @ 100 mls/hr Q24H IV 12/07/17 23:00 12/07/17 22:29 (Atrovent Neb) 0.5 mg QID NEB NEB 12/08/17 16:00 12/08/17 16:42 (Albuterol Neb) 1.25 mg QID NEB NEB 12/08/17 16:00 12/08/17 16:42 (Duoneb Neb) 1 ampule Q6HR NEB PRN NEB 12/08/17 13:15 Family History Father age 72 with CAD Mother age 96 with CAD Social History Previous smoker, stopped smoking in 2009 Non-drinker Occasional caffeine , lives with his Physical Exam Vital Signs Vital Signs Date Time Temp Pulse Resp B/P (MAP) Pulse Ox O2 Delivery O2 Flow Rate FiO2 12/08/17 15:26 97.9 102 18 133/63 (86) 95 12/08/17 12:00 2.00 12/08/17 11:10 97.7 126 22 140/78 (98) 95 12/08/17 09:35 98 Nasal Cannula 3.00 12/08/17 09:10 104 12/08/17 07:18 97.7 105 20 136/85 (102) 97 12/08/17 04:30 98.6 106 16 159/77 (104) 96 12/08/17 01:20 98.0 101 14 118/58 (78) 97 12/08/17 00:07 96 12/07/17 22:19 99 Nasal Cannula 2.00 12/07/17 20:51 12/07/17 20:50 98.0 128 16 135/87 (103) 96 12/07/17 19:23 112 20 176/84 (114) 95 Nasal Cannula 2.00 Physical Exam GENERAL: Awake, alert. No distress. SKIN: Warm and dry. HEAD: Atraumatic. Normocephalic. EYES: Pupils equal and round. No scleral icterus. No injection or drainage. ENT: No nasal bleeding or discharge. Mucous membranes pink and moist. NECK: Trachea midline. No JVD. CARDIOVASCULAR: Tachycardic. Irregularly irregular rhythm. No edema. RESPIRATORY: No accessory muscle use. Clear to auscultation, diminished throughout. Breath sounds equal bilaterally. GASTROINTESTINAL: Abdomen soft, non-tender, nondistended. MUSCULOSKELETAL: Extremities without clubbing, cyanosis, or edema. No obvious deformities. NEUROLOGICAL: Awake and alert. No obvious cranial nerve deficits. Motor grossly within normal limits. Five out of 5 muscle strength in the arms and legs. Normal speech. PSYCHIATRIC: Appropriate mood and affect; insight and judgment normal. Laboratory Laboratory Tests Test 12/08/17 04:51 White Blood Count 10.4 Red Blood Count 4.25 Hemoglobin 13.5 Hematocrit 38.8 Mean Corpuscular Volume 91.3 Mean Corpuscular Hemoglobin 31.7 Mean Corpuscular Hemoglobin Concent 34.7 Red Cell Distribution Width 15.0 Platelet Count 339 Mean Platelet Volume 8.2 Neutrophils (%) (Auto) 90.2 Lymphocytes (%) (Auto) 6.9 Monocytes (%) (Auto) 2.8 Eosinophils (%) (Auto) 0.0 Basophils (%) (Auto) 0.1 Neutrophils # (Auto) 9.3 Lymphocytes # (Auto) 0.7 Monocytes # (Auto) 0.3 Eosinophils # (Auto) 0.0 Basophils # (Auto) 0.0 CBC Comment DIFF FINAL Differential Comment Blood Urea Nitrogen 21 Creatinine 0.91 Random Glucose 171 Calcium Level 9.0 Sodium Level 140 Potassium Level 4.3 Chloride Level 107 Carbon Dioxide Level 26.1 Anion Gap 7 Estimat Glomerular Filtration Rate 81 Date/Time Source Procedure Growth Status 12/07/17 15:50 Nasal Washing Influenza Types A,B Antigen (MOLLY) - Final NEGATIVE FOR FLU A AND B ANTIGEN.... Complete 12/08/17 13:00 Urine Clean Catch Legionella Antigen - Final PRESUMPTIVE NEGATIVE FOR LEGIONELLA P... Complete 12/08/17 13:00 Urine Clean Catch Streptococcus pneumoniae Antigen (M - Final PRESUMPTIVE NEGATIVE FOR STREPTOCOCCU... Complete Result Diagram: 12/08/17 0451 12/08/17 0451 Assessment and Plan Assessment and Plan COPD exacerbation Atrial fibrillation with rapid ventricular response Hypertension Hyperlipidemia Nonischemic cardiomyopathy Currently in atrial fibrillation, rate 98. Will increase beta hank for improved rate control. He is anticoagulated with xarelto. Continue digoxin, lisinopril, statin. Will check echocardiogram to evaluate LV function. Code Status Full Discussed Condition With Yuridia Stuart Dec 08, 2017 18:23
[2017-12-08] MEDS ORDERED: PILL SPLITTER OTHER PRN (19:30)
[2017-12-08] MEDS: METOPROLOL TARTRATE 25 MG TAB PO SCH (20:28)
[2017-12-08] MEDS ORDERED: NON-FORMULARY DRUG (Arformoterol Neb (Brovana Neb) 1 NEBULE) NEB SCH (21:00)
[2017-12-08] MEDS: LEVOFLOXACIN 750 MG PREMIX INJ 150 ML IV SCH (22:56)
[2017-12-09] VITALS (11 sets, daily range): BP systolic 129–159; BP diastolic 70–82; PULSE 79–110; RESP 16–20; TEMP 97.5–98.4; O2SAT 93–98
[2017-12-09] MEDS: METOPROLOL TARTRATE 25 MG TAB PO SCH ×4 (00:29→18:04)
[2017-12-09] MEDS: methylPREDNISolone SOD SUCC 125 MG/2 ML VIAL IV PUSH SCH ×3 (06:25→21:05)
[2017-12-09] MEDS: RESP: ALBUTEROL 1.25 MG/3 ML NEB (SCH) NEB ×4 (07:47→19:21)
[2017-12-09] MEDS: RESP: IPRATROPIUM 0.5 MG/2.5 ML NEB NEB SCH ×4 (07:47→19:21)
--- NOTE | 2017-12-09 08:22 | HHI.PR ---
Subjective Remarks Follow-up COPD and A. fib. States he is feeling better less dyspnea on nasal cannula. Still in A. fib with CVR on telemetry discussed with nursing Objective Vitals Vital Signs Date Time Temp Pulse Resp B/P (MAP) Pulse Ox O2 Delivery O2 Flow Rate FiO2 12/09/17 07:53 97 21 12/09/17 07:31 97.5 82 20 157/82 (107) 97 12/09/17 06:33 82 159/78 (105) 12/09/17 03:50 97.6 85 16 136/73 (94) 98 12/09/17 03:50 79 12/09/17 00:24 97.6 92 20 129/73 (91) 96 12/09/17 00:00 83 12/08/17 21:04 100 12/08/17 20:29 112 19 144/70 (94) 96 12/08/17 19:15 96 Nasal Cannula 2.00 12/08/17 15:26 97.9 102 18 133/63 (86) 95 12/08/17 12:00 2.00 12/08/17 11:10 97.7 126 22 140/78 (98) 95 12/08/17 09:35 98 Nasal Cannula 3.00 12/08/17 09:10 104 Result Diagram: 12/08/17 0451 12/08/17 0451 Imaging Last Impressions Chest X-Ray 12/07/17 1503 Signed Impressions: Service Date/Time: Thursday, December 07, 2017 15:17 - CONCLUSION: 1. No acute pulmonary infiltrates. 2. Mild compensated cardiomegaly. Efra Angel MD Objective Remarks GENERAL: Well-developed and well-nourished SKIN: No rashes, ecchymoses or lesions. Cool and dry. CARDIOVASCULAR: Irregularly irregular RESPIRATORY: Breath sounds equal bilaterally. Mild expiratory wheezes GASTROINTESTINAL: Abdomen soft, non-tender, nondistended. No guarding. MUSCULOSKELETAL: Extremities without clubbing, cyanosis, or edema. No joint tenderness, effusion, or edema noted. No calf tenderness. Procedures none A/P Problem List: (1) COPD (chronic obstructive pulmonary disease) ICD Code: J44.9 - Chronic obstructive pulmonary disease, unspecified Assessment and Plan 1. COPD exacerbation. Improving. Continue nebulization, Levaquin and wean oxygen to keep saturations at least 92%. Taper steroids and increase activity 2. Atrial fibrillation with RVR. Improved on metoprolol, digoxin and Xarelto. May need Cardizem drip. Normal TSH and monitor on telemetry 3. Hypertension/hyperlipidemia. Stable continue home medications FEN Heart healthy diet Electrolytes: monitor and replete prn Xarelto Discharge Planning Discharge when cleared by cardiology and pulmonary AbandSammy wilson MD Dec 09, 2017 08:22
[2017-12-09] MEDS: DIGOXIN 0.25 MG TAB PO SCH (10:13)
[2017-12-09] MEDS: ATORVASTATIN 20 MG TAB PO SCH (10:13)
[2017-12-09] MEDS: RIVAROXABAN 20 MG TAB PO SCH (10:14)
[2017-12-09] MEDS: LISINOPRIL 5 MG TAB PO SCH (10:14)
[2017-12-09] MEDS: CITALOPRAM HYDROBROMIDE 20 MG TAB PO SCH (10:14)
[2017-12-09] MEDS: SODIUM CHLORIDE 0.9% FLUSH 10 ML FLUSH IV FLUSH SCH ×2 (10:15→21:05)
--- NOTE | 2017-12-09 11:47 | ECHRPT ---
Indication: atrial fib CONCLUSIONS The left ventricular systolic function is low normal with an estimated ejection fraction in the rang e of 50- 55%. Normal left ventricular size. Wall thickness is measured at the upper limits of normal. No regional wall motion abnormalities are present. The left atrial size is mildly dilated. The right atrial size is mildly dilated. Trace mitral valve regurgitation. Aortic valve sclerosis is present. Trace aortic valve regurgitation. There is trace tricuspid valve regurgitation. The estimated pulmonary arterial pressure is 41.8 mmHg. Trivial pulmonary valve regurgitation. BP: 157 / 82 HR: 82 Rhythm: Atrial fibrillation MEASUREMENTS (Male / Female) Normal Values Technical Quality:Fair 2D ECHO LV Diastolic Diameter PLAX 6.0 cm 4.2 - 5.9 / 3.9 - 5.3 cm LV Systolic Diameter PLAX 5.1 cm IVS Diastolic Thickness 1.2 cm 0.6 - 1.0 / 0.6 - 0.9 cm LVPW Diastolic Thickness 1.2 cm 0.6 - 1.0 / 0.6 - 0.9 cm LV Relative Wall Thickness 0.4 RV Internal Dim ED PLAX 3.1 cm LVOT Diameter 1.9 cm LA Systolic Diameter LX 4.5 cm 3.0 - 4.0 / 2.7 - 3.8 cm LV Ejection Fraction MOD 4C 54.3 % LV Cardiac Index MOD 4C 1897.1 cm/minm LV Ejection Fraction 4C AL 56.1 % LV Cardiac Index 4C AL 2013.8 cm/minm M-MODE LV Diastolic Diameter MM 6.5 cm 4.2 - 5.9 / 3.9 - 5.3 cm LV Systolic Diameter MM 5.1 cm LV Ejection Fraction MM Teich 41.4 % LV Cardiac Index MM Teich 3317.0 cm/minm IVS Diastolic Thickness MM 1.3 cm 0.6 - 1.0 / 0.6 - 0.9 cm LVPW Diastolic Thickness MM 1.3 cm 0.6 - 1.0 / 0.6 - 0.9 cm LV Relative Wall Thickness MM 0.4 0.24 - 0.42 / 0.22 - 0.42 LV Mass Index MM 175.2 g/m 49 - 115 / 43 - 95 g/m Aortic Root Diameter MM 3.1 cm LA Systolic Diameter MM 4.7 cm LA Ao Ratio MM 1.5 AV Cusp Separation MM 2.0 cm DOPPLER AV Peak Velocity 109.0 cm/s AV Peak Gradient 4.8 mmHg AI Peak Velocity 271.5 cm/s AI Peak Gradient 29.5 mmHg AI Pressure Half Time 1043.0 ms LVOT Peak Velocity 92.8 cm/s LVOT Peak Gradient 3.4 mmHg AV Area Cont Eq pk 2.4 cm MV Area PHT 5.0 cm LV E' Lateral Velocity 9.3 cm/s LV E' Septal Velocity 10.3 cm/s TR Peak Velocity 282.0 cm/s TR Peak Gradient 31.8 mmHg Right Atrial Pressure 10.0 mmHg Pulmonary Artery Systolic Pressu 41.8 mmHg Right Ventricular Systolic Press 41.8 mmHg PV Peak Velocity 69.2 cm/s PV Peak Gradient 1.9 mmHg FINDINGS LEFT VENTRICLE The left ventricular systolic function is low normal with an estimated ejection fraction in the rang e of 50- 55%. Normal left ventricular size. Wall thickness is measured at the upper limits of normal. No regional wall motion abnormalities are present. RIGHT VENTRICLE Normal right ventricular size and systolic function. LEFT ATRIUM The left atrial size is mildly dilated. RIGHT ATRIUM The right atrial size is mildly dilated. ATRIAL SEPTUM Normal atrial septal thickness without atrial level shunting by limited color doppler interrogation. AORTA The aortic root and proximal ascending aorta are normal in size on limited imaging. MITRAL VALVE Structurally normal mitral valve. Trace mitral valve regurgitation. AORTIC VALVE Trileaflet aortic valve. Aortic valve sclerosis is present. Trace aortic valve regurgitation. TRICUSPID VALVE Structurally normal tricuspid valve. There is trace tricuspid valve regurgitation. The estimated pulmonary arterial pressure is 41.8 mmHg. PULMONARY VALVE Trivial pulmonary valve regurgitation. VESSELS The inferior vena cava is normal in size. PERICARDIUM No pericardial effusion. Farrukh Monge MD, FACC (Electronically Signed) Final Date:09 December 2017 11:46
[2017-12-09] MEDS: guaiFENesin E.R. 600 MG TAB PO SCH ×2 (12:22→21:06)
--- NOTE | 2017-12-09 12:58 | PD.CARD.PN ---
Subjective Subjective Remarks Sitting up in chair. Feeling better. On room air. Has been ambulating without difficulty. Objective Medications Current Medications Medications (Trade) Dose Ordered Sig/Chema Route Start Time Stop Time Status Last Admin (NS Flush) 2 ml UNSCH PRN IV FLUSH 12/07/17 20:30 (NS Flush) 2 ml BID IV FLUSH 12/07/17 21:00 12/09/17 10:15 (Tylenol) 650 mg Q4H PRN PO 12/07/17 20:30 (Compazine Supp) 25 mg Q12H PRN RECTAL 12/07/17 20:30 (CeleXA) 10 mg DAILY PO 12/08/17 09:00 12/09/17 10:14 (Lanoxin) 0.25 mg DAILY PO 12/08/17 09:00 12/09/17 10:13 ([place] 5-325 Mg) 1 tab Q6H PRN PO 12/07/17 20:30 12/08/17 22:56 (Prinivil) 5 mg DAILY PO 12/08/17 09:00 12/09/17 10:14 (Xarelto) 20 mg DAILY PO 12/08/17 09:00 12/09/17 10:14 (Requip) 1 mg HS PO 12/07/17 21:00 12/08/17 20:25 (Lipitor) 20 mg DAILY PO 12/08/17 09:00 12/09/17 10:13 (SoluMEDROL INJ) 60 mg Q6H IV PUSH 12/07/17 23:00 12/09/17 12:22 Levofloxacin/ Dextrose 150 ml @ 100 mls/hr Q24H IV 12/07/17 23:00 12/08/17 22:56 (Atrovent Neb) 0.5 mg QID NEB NEB 12/08/17 16:00 12/09/17 10:59 (Albuterol Neb) 1.25 mg QID NEB NEB 12/08/17 16:00 12/09/17 10:59 (Duoneb Neb) 1 ampule Q6HR NEB PRN NEB 12/08/17 13:15 (Lopressor) 12.5 mg Q6HR PO 12/08/17 18:30 12/09/17 12:21 (Pill Splitter) 1 ea UNSCH PRN OTHER 12/08/17 19:30 (Mucinex Er) 600 mg BID PO 12/09/17 10:30 12/09/17 12:22 Vital Signs / I&O Vital Signs Date Time Temp Pulse Resp B/P (MAP) Pulse Ox O2 Delivery O2 Flow Rate FiO2 12/09/17 11:55 97.6 110 20 140/70 (93) 93 12/09/17 07:53 97 21 12/09/17 07:31 97.5 82 20 157/82 (107) 97 12/09/17 06:33 82 159/78 (105) 12/09/17 03:50 97.6 85 16 136/73 (94) 98 12/09/17 03:50 79 12/09/17 00:24 97.6 92 20 129/73 (91) 96 12/09/17 00:00 83 12/08/17 21:04 100 12/08/17 20:29 112 19 144/70 (94) 96 12/08/17 19:15 96 Nasal Cannula 2.00 12/08/17 15:26 97.9 102 18 133/63 (86) 95 I/O 12/08/17 12/08/17 12/08/17 12/09/17 12/09/17 12/09/17 07:00 15:00 23:00 07:00 15:00 23:00 Intake Total 240 ml Balance 240 ml Intake Oral 240 ml # Voids 2 3 Physical Exam GENERAL: Awake, alert. No distress. SKIN: Warm and dry. HEAD: Atraumatic. Normocephalic. EYES: Pupils equal and round. No scleral icterus. No injection or drainage. ENT: No nasal bleeding or discharge. Mucous membranes pink and moist. NECK: Trachea midline. No JVD. CARDIOVASCULAR: Regular rate and irregularly irregular rhythm. No edema. RESPIRATORY: No accessory muscle use. Clear to auscultation. Breath sounds equal bilaterally. GASTROINTESTINAL: Abdomen soft, non-tender, nondistended. MUSCULOSKELETAL: Extremities without clubbing, cyanosis, or edema. No obvious deformities. NEUROLOGICAL: Awake and alert. No obvious cranial nerve deficits. Motor grossly within normal limits. Five out of 5 muscle strength in the arms and legs. Normal speech. PSYCHIATRIC: Appropriate mood and affect; insight and judgment normal. Assessment and Plan Assessment and Plan COPD exacerbation Atrial fibrillation with rapid ventricular response Hypertension Hyperlipidemia Nonischemic cardiomyopathy Remains in atrial fibrillation, rate controlled 82. Continue beta hank, digoxin. He is anticoagulated with xarelto. Continue lisinopril, statin. Echocardiogram with normal LV function, pulmonary artery pressure 41.8mmHg. Stable from cardiac standpoint. He has follow up appointment in the office in 2 weeks. Code Status Full Discussed Condition With Dr. Rupesh Carmona,Yuridia WALLACE Dec 09, 2017 12:58
[2017-12-09] MEDS: LEVOFLOXACIN 750 MG TAB PO SCH (18:04)
[2017-12-10] VITALS (8 sets, daily range): BP systolic 139–168; BP diastolic 68–82; PULSE 76–104; RESP 18; TEMP 97.7–98.9; O2SAT 93–97
[2017-12-10] MEDS: METOPROLOL TARTRATE 25 MG TAB PO SCH ×3 (01:00→11:48)
[2017-12-10] MEDS: RESP: ALBUTEROL 1.25 MG/3 ML NEB (SCH) NEB ×2 (07:51→11:39)
[2017-12-10] MEDS: RESP: IPRATROPIUM 0.5 MG/2.5 ML NEB NEB SCH ×2 (07:51→11:39)
[2017-12-10] MEDS: DIGOXIN 0.25 MG TAB PO SCH (08:23)
[2017-12-10] MEDS: SODIUM CHLORIDE 0.9% FLUSH 10 ML FLUSH IV FLUSH SCH (08:23)
[2017-12-10] MEDS: methylPREDNISolone SOD SUCC 125 MG/2 ML VIAL IV PUSH SCH (08:23)
[2017-12-10] MEDS: ATORVASTATIN 20 MG TAB PO SCH (08:23)
[2017-12-10] MEDS: CITALOPRAM HYDROBROMIDE 20 MG TAB PO SCH (08:24)
[2017-12-10] MEDS: guaiFENesin E.R. 600 MG TAB PO SCH (08:24)
[2017-12-10] MEDS: RIVAROXABAN 20 MG TAB PO SCH (08:24)
[2017-12-10] MEDS: LISINOPRIL 5 MG TAB PO SCH (08:24)
--- NOTE | 2017-12-10 09:01 | HHI.PR ---
Objective Vitals Vital Signs Date Time Temp Pulse Resp B/P (MAP) Pulse Ox O2 Delivery O2 Flow Rate FiO2 12/10/17 08:27 97.7 94 18 168/82 (110) 96 12/10/17 08:27 Room Air 12/10/17 07:53 97 21 12/10/17 05:32 98.5 83 18 139/81 (100) 95 12/10/17 04:00 86 12/10/17 00:55 98.2 90 18 164/71 (102) 93 12/09/17 20:46 98.4 94 18 152/80 (104) 94 12/09/17 19:23 96 12/09/17 16:25 97.9 96 18 142/75 (97) 95 12/09/17 11:55 97.6 110 20 140/70 (93) 93 I/O 12/09/17 12/09/17 12/09/17 12/10/17 12/10/17 12/10/17 07:00 15:00 23:00 07:00 15:00 23:00 Intake Total 240 ml Balance 240 ml Intake Oral 240 ml # Voids 3 Result Diagram: 12/08/17 04512/08/17 0451 Objective Remarks GENERAL: Well-developed and well-nourished SKIN: No rashes, ecchymoses or lesions. Cool and dry. CARDIOVASCULAR: Irregularly irregular RESPIRATORY: Breath sounds equal bilaterally. Mild expiratory wheezes GASTROINTESTINAL: Abdomen soft, non-tender, nondistended. No guarding. MUSCULOSKELETAL: Extremities without clubbing, cyanosis, or edema. No joint tenderness, effusion, or edema noted. No calf tenderness. Procedures none A/P Problem List: (1) COPD (chronic obstructive pulmonary disease) ICD Code: J44.9 - Chronic obstructive pulmonary disease, unspecified Assessment and Plan 1. COPD exacerbation. Improving. Continue nebulization, Levaquin and wean oxygen to keep saturations at least 92%. Taper steroids and increase activity 2. Atrial fibrillation with RVR. Improved on metoprolol, digoxin and Xarelto. May need Cardizem drip. Normal TSH and monitor on telemetry 3. Hypertension/hyperlipidemia. Stable continue home medications FEN Heart healthy diet Electrolytes: monitor and replete prn Xarelto Discharge Planning Discharge when cleared by cardiology and pulmonary AbandSammy wilson MD Dec 10, 2017 09:01
[2017-12-10] MEDS ORDERED: hydrOXYzine PAMOATE 25 MG CAP PO PRN (10:30)
[2017-12-10] MEDS: LEVOFLOXACIN 750 MG TAB PO SCH (11:47)
[2017-12-10] MEDS ORDERED: BUDESONIDE-FORMOTEROL 160/4.5 MCG INHALER INH SCH (12:30)
--- NOTE | 2017-12-10 13:08 | MD ---
cc: Alton Stanley MD DATE OF DISCHARGE: Mr. Kaufman is a 77-year-old while male whom I just recently began to see with COPD. He has moderately severe disease. He called short of breath with congestion, had not responded to outpatient therapy, so came into the emergency room. He was admitted for an acute exacerbation. He was treated with IV corticosteroids, aerosolized bronchodilators, antibiotics, and is feeling much better today. He had a chest x-ray with nothing acute, no pulmonary infiltrates. He was seen by Dr. Goddard for rapid atrial fibrillation and an abnormal CPK. It was not felt that he had any ischemia and that the changes were all related to atrial fibrillation and possibly some mild diastolic heart failure. Heart rate has been controlled on current medications. At the time of this dictation, the patient is up, ambulatory, on room air, O2 sats in the 96-97% range, wheezing has resolved, and he is feeling much better. Lungs are clear. The patient will be discharged home on Symbicort 160 one puff twice a day, tapering course of prednisone and his nebulizer with albuterol and Atrovent 2-3 times a day. He has a scheduled appointment to see me in the office next Wednesday. He is stable at the time of discharge. MD ANAMARIA Cat/CLARENCE , 12:35 PM , 01:06 PM
[2017-12-10] MEDS ORDERED: SYMB160A INH (14:11)
[2017-12-10] MEDS ORDERED: LEVA750T9 PO (14:11)
[2017-12-10] MEDS ORDERED: PRED20 PO (14:11)
[2017-12-10] MEDS ORDERED: METO25TA3 PO (14:11)
--- NOTE | 2017-12-10 14:17 | HHI.DCPOC ---
Discharge Care Plan Diagnosis: (1) HTN (hypertension) (2) HLD (hyperlipidemia) (3) COPD (chronic obstructive pulmonary disease) (4) A-fib Your Health Problems Are: Cough Shortness of Breath Goals to Promote Your Health * To prevent worsening of your condition and complications * To maintain your health at the optimal level Directions to Meet Your Goals Take your medications as prescribed Follow your dietary instruction Follow activity as directed Keep your appointments as scheduled Take your immunizations and boosters as scheduled If your symptoms worsen call your PCP, if no PCP go to Urgent Care Center or Emergency Room Smoking is Dangerous to Your Health. Avoid second hand smoke Call the 24-hour hour crisis hotline for domestic abuse at Amy Tinoco PA-C Dec 10, 2017 2:17 pm
[2017-12-10] MEDS ORDERED: PRED10 PO (14:23)
--- NOTE | 2017-12-10 18:21 | HHI.DS ---
Discharge Summary Admission Date Dec 07, 2017 at 19:24 Discharge Date: Dec 10, 2017 Admitting Diagnosis COPD exacerbation (1) COPD (chronic obstructive pulmonary disease) ICD Code: J44.9 - Chronic obstructive pulmonary disease, unspecified Diagnosis: Principal Procedures none Brief History - From Admission 77-year-old male with a past medical history significant for COPD, atrial fibrillation anticoagulated on Xarelto, hypertension and hyperlipidemia presents to the emergency department for evaluation of shortness of breath. The patient reports that since Frieda has had a constant bronchial infection. He has completed 2 courses of oral steroids and antibiotics. He reports that on Wednesday he had a fever of 101.8 and a cough that was productive of yellow sputum. On Wednesday he started Levaquin and oral prednisone. He reports an increase in his shortness of breath despite starting these medications. He is not on home oxygen. He denies any chest pain. He denies nausea/vomiting/diarrhea. No lateralizing signs/symptoms. CBC/BMP: 12/08/17 0451 12/08/17 0451 Significant Findings Laboratory Tests Test 12/08/17 04:51 Red Blood Count 4.25 MIL/MM3 (4.50-5.90) Hematocrit 38.8 % (39.0-51.0) Neutrophils (%) (Auto) 90.2 % (16.0-70.0) Lymphocytes (%) (Auto) 6.9 % (9.0-44.0) Neutrophils # (Auto) 9.3 TH/MM3 (1.8-7.7) Lymphocytes # (Auto) 0.7 TH/MM3 (1.0-4.8) Blood Urea Nitrogen 21 MG/DL (7-18) Random Glucose 171 MG/DL (74-106) Estimat Glomerular Filtration Rate 81 ML/MIN (>89) Imaging Last Impressions Chest X-Ray 12/07/17 1503 Signed Impressions: Service Date/Time: Thursday, December 07, 2017 15:17 - CONCLUSION: 1. No acute pulmonary infiltrates. 2. Mild compensated cardiomegaly. Efra Angel MD PE at Discharge GENERAL: Well-developed and well-nourished SKIN: No rashes, ecchymoses or lesions. Cool and dry. CARDIOVASCULAR: Irregularly irregular RESPIRATORY: Breath sounds equal bilaterally. Mild expiratory wheezes GASTROINTESTINAL: Abdomen soft, non-tender, nondistended. No guarding. MUSCULOSKELETAL: Extremities without clubbing, cyanosis, or edema. No joint tenderness, effusion, or edema noted. No calf tenderness. Hospital Course 1. COPD exacerbation. Improving. Continue nebulization, Levaquin and wean oxygen to keep saturations at least 92%. Taper steroids and increase activity 2. Atrial fibrillation with RVR. Improved on metoprolol, digoxin and Xarelto. Normal TSH and monitor on telemetry 3. Hypertension/hyperlipidemia. Stable continue home medications FEN Heart healthy diet Electrolytes: monitor and replete prn Xarelto Pt Condition on Discharge: Stable Discharge Disposition: Discharge Home Discharge Time: > 30 minutes Discharge Instructions DIET: Follow Instructions for: Heart Healthy Diet Activities you can perform: Regular-No Restrictions Follow up Referrals: Cardiology - 2 Weeks with Rk Goddard MD PCP Follow-up - 1 Week Pulmonology - 1 Week with Alton Stanley MD New Medications: Budesonide-Formoterol Inh (Symbicort Inh) 160-4.5 Mcg/Act Aero 1 PUFF INH Q12HR for COPD, #1 INHALER 0 Refills Prednisone (Prednisone) 10 Mg Tab 10 MG PO DAILY for COPD, #18 TAB 0 Refills Take 3 tabs once daily x3days, Then take 2 tabs once daily x3days, Then take 1 tab once daily x3days. Levofloxacin (Levaquin) 750 Mg Tablet 750 MG PO DAILY@1100 for bronchitis for 4 Days, #4 TAB Metoprolol Tartrate (Metoprolol Tartrate) 25 Mg Tab 12.5 MG PO Q6HR for Regulate Heart Beat for 30 Days, #60 TAB Continued Medications: Albuterol 18 GM Inh (Ventolin Hfa 18 GM Inh) 90 Mcg/Act Aer 1 PUFF INH Q4H PRN for SHORTNESS OF BREATH, #1 INHALER 0 Refills Citalopram (Citalopram) 10 Mg Tab 10 MG PO DAILY for Control Depression, #30 TAB [address] (Diclofen[address] Sodium DR) 75 Mg Tabdr 75 MG PO BID, #60 TAB 0 Refills Digoxin (Digoxin) 0.25 Mg Tab 0.25 MG PO DAILY for Regulate Heart Beat, #30 TAB 0 Refills Hydrocodone-Acetaminophen (Hydrocodone-Acetaminophen) 5-325 mg Tab 1 TAB PO Q6H PRN for PAIN, TAB 0 Refills Ketotifen Opth Drops (ZyrTEC Itchy Eye Opth Drops) 0.025% Drops 1 DROP EACH EYE BID PRN for ALLERGIES, BOTTLE 0 Refills Lisinopril (Lisinopril) 5 Mg Tab 5 MG PO DAILY for Blood Pressure Management, #30 TAB 0 Refills Metronidazole Topical (Metronidazole Topical) 1 % Gel 1 APPLIC TOPICAL DAILY for Infection, #1 TUBE 0 Refills Rivaroxaban (Xarelto) 20 Mg Tab 20 MG PO DAILY for Blood Clot Prevention, TAB 0 Refills Ropinirole (Ropinirole) 1 Mg Tab 1 MG HS, #30 TAB 0 Refills Rosuvastatin (Crestor) 10 Mg Tab 10 MG PO DAILY for Cholesterol Management, #30 TAB 0 Refills Tiotropium Inh (Spiriva Handihaler) 18 Mcg Cap 18 MCG INH DAILY for COPD, #30 CAP 0 Refills 1 capsule = 18 mcg Triamcinolone Acetonide Nasal [place] (Nasacort Allergy 24Hr Nasal [place]) 55 Mcg Spr 55 MCG EACH NARE DAILY for Allergy Management, BOTTLE 0 Refills Discontinued Medications: Arformoterol Neb (Brovana Neb) 15 Mcg/2 Ml Vial 1 NEBULE NEB BID for Broncospasm, #60 NEBULE Maintenance treatment of bronchoconstriction in COPD. Ipratropium Nasal (Ipratropium Nasal) 0.06% [place] 1 SPRAY EACH NARE TID, #1 BOTTLE 0 Refills Nebivolol (Bystolic) 2.5 Mg Tab 2.5 MG PO DAILY for Blood Pressure Management, #30 TAB 0 Refills Sammy Izaguirre MD Dec 10, 2017 18:21
== END 2017-12-10 15:59 | disposition home or self-care (01) ==
LOC: NEPE 14:26 → NEDA 19:24 → NEPHCDU 20:47
PROVIDERS: ADMIT Internal Medicine; ATTEND Internal Medicine
DX: J44.1 Chronic obstructive pulmonary disease with (acute) exacerbation (principal); I48.2 Chronic atrial fibrillation; I10 Essential (primary) hypertension; I42.9 Cardiomyopathy, unspecified; E78.5 Hyperlipidemia, unspecified; E66.9 Obesity, unspecified; M54.9 Dorsalgia, unspecified; G89.29 Other chronic pain; G47.30 Sleep apnea, unspecified; E78.00 Pure hypercholesterolemia, unspecified; Z79.01 Long term (current) use of anticoagulants; Z87.891 Personal history of nicotine dependence; Z96.653 Presence of artificial knee joint, bilateral
CPT/HCPCS: 71046; 80048; 80053; 81001; 82550; 82552; 83880; 84484; 85025; 85610; 85730; 87449; 87804; 93005; 93306; 94618; 94640; 94664; 96365; 96366; 96375; 96376; 99285; G0378; J1956; J2930; J7613; J7644